=== PATIENT | female | born 1995 | race Caucasian/White ===

== ENCOUNTER → 2019-05-06 08:19 | Outpatient (CLI) | payer BC, SELFPAY ==
--- NOTE | ~2019-05-06 | US_ITS ---
EXAMINATION: US OB >= 14 weeks Fetus DATE: 05/06/2019 08:50 INDICATION: Second trimester anatomic survey TECHNIQUE: Real-time ultrasound of the pelvis was performed. COMPARISON: 02/25/2019. FINDINGS: There is a single living fetus in vertex presentation. The placenta is anterior and 1.1 cm from the i nternal cervical os. heart rate is 156 beats per minute (bpm). cardiac activity and feta l movement are noted. The amniotic fluid index is subjectively normal. The following anatomy was identified as normal: 4 chamber heart 3 vessel cord cord insertion kidneys urinary bladder stomach spine diaphragm ventricles cisterna magna cerebellum The following biometric data were obtained: Biparietal diameter (BPD): 4.3 cm; head circumference (HC): 15.6 cm; abdominal circumference (AC): 13 .6 cm; femur length (FL): 2.8 cm. These measurements are concordant. Estimated weight is 261 g +/- 39 g, which correlates with the 73rd percentile when 10/04/19 is u sed as estimated date of delivery. As single measurements, these parameters are each equal to the following estimated gestational ages w ith ranges of +/- 2 standard deviations: BPD: 19 weeks 0 days ( 17 weeks 2 days - 20 weeks 6 days). HC: 18 weeks 4 days ( 17 weeks 1 days - 20 weeks 0 days). AC: 19 weeks 1 days ( 17 weeks 0 days - 21 weeks 1 days). FL: 18 weeks 5 days ( 16 weeks 6 days - 20 weeks 3 days). estimated gestational age based solely on measurements from this exam is 18 weeks 6 days +/- 1 weeks 2 days. IMPRESSION: 1. Single living fetus in vertex presentation. 2. Estimated weight is 261 g +/- 39 g, which correlates with the 73rd percentile when 10/04/19 i s used as estimated date of delivery. 3. Low-lying placenta. Reviewed, dictated and finalized at location A. IMPRESSION: 1. Single living fetus in vertex presentation. 2. Estimated weight is 261 g +/- 39 g, which correlates with the 73rd per centile when 10/04/19 is used as estimated date of delivery. 3. Low-lying placenta.
== END ==
PROVIDERS: Visit Provider Obstetrics & Gynecology Gynecology
DX: Z36.9 Encounter for antenatal screening, unspecified (principal); Z3A.18 18 weeks gestation of pregnancy
CPT/HCPCS: 76805

== ENCOUNTER → 2019-06-02 11:13 | Outpatient (CLI) | payer BC, SELFPAY ==
--- NOTE | ~2019-06-02 | US_ITS ---
EXAMINATION: US OB limited DATE: 06/02/2019 11:29 INDICATION: Low-lying placenta, second trimester TECHNIQUE: Real-time ultrasound of the pelvis was performed. The interpreting radiologist was not pre sent for the study. COMPARISON: 05/06/2019 FINDINGS: There is a single living fetus in vertex presentation. The placenta is anterior and 1.3 cm from the internal cervical os.. cardiac activity and movement are noted. heart rate is 152 beats per minute (bpm). The amniotic fluid index is subjectively normal. IMPRESSION: 1. Single living fetus in vertex presentation. 2. Persistent low-lying placenta. Reviewed, dictated and finalized at location B.
== END ==
PROVIDERS: PCP Physician Assistant Medical; Visit Provider Obstetrics & Gynecology Gynecology
DX: O44.10 Complete placenta previa with hemorrhage, unspecified trimester (principal); Z3A.00 Weeks of gestation of pregnancy not specified
CPT/HCPCS: 76815

== ENCOUNTER 2019-06-29 09:54 | Outpatient (CLI) | payer BC, SELFPAY ==
--- NOTE | ~2019-06-29 | US_ITS ---
EXAMINATION: US OB limited, US OB transvaginal DATE: 06/29/2019 11:06 INDICATION: Low lying placenta TECHNIQUE: Real-time ultrasound of the pelvis was performed utilizing both transabdominal and transva ginal probes. The interpreting radiologist was not present for the study. COMPARISON: None. FINDINGS: There is a single living fetus in vertex presentation. The placenta is anterior and low lying with c audal margin 2.1 cm from the internal cervical os. heart rate is 132 beats per minute (bpm). IMPRESSION: 1. Single living fetus in vertex presentation with heart rate of 132 bpm. 2. Anterior placenta is borderline but not low-lying with caudal margin 2.1 cm from the internal cerv ical os. Reviewed, dictated and finalized at location A. IMPRESSION: 1. Single living fetus in vertex presentation with heart rate of 132 bpm . 2. Anterior placenta is borderline but not low-lying with caudal margin 2.1 cm from the internal cervical os.
[2019-06-29 12:30] LABS: Hematocrit 35.6 % (37.0-47.0)
[2019-06-29 12:49] LABS: Glucose 1 Hour PP 50gm Dose 108 mg/dL
[2019-06-29 13:15] LABS: Vitamin D 25 Hydroxy 58.2 ng/mL
[2019-06-29 13:29] LABS: HIV 1/2 Ab P24 Ag Result Negative (Negative)
[2019-06-30] MEDS: RHO(D) IMMUNE GLOBULIN 300 MCG SYRINGE IM (16:13)
== END 2019-06-29 09:55 | disposition home or self-care (01) ==
LOC: ANHIMG 10:04
PROVIDERS: PCP Physician Assistant Medical; Visit Provider Obstetrics & Gynecology Gynecology
DX: Z34.03 Encounter for supervision of normal first pregnancy, third trimester (principal)
CPT/HCPCS: 36415; 76815; 76817; 81220; 82306; 82947; 85014; 85018; 85461; 86703; 90384; 96372; G0432; J2790

== ENCOUNTER 2019-07-28 10:59 | Outpatient (CLI) | payer BC, SELFPAY ==
--- NOTE | ~2019-07-28 | US_ITS ---
EXAMINATION: US OB limited DATE: 07/28/2019 12:09 INDICATION: Low-lying placenta during third trimester . TECHNIQUE: Real-time ultrasound of the pelvis was performed. The interpreting radiologist was not pre sent for the study. COMPARISON: 07/09/2019 FINDINGS: There is a single living fetus in vertex presentation. The placenta is anterior with caudal margin 3 .3 cm from the internal cervical os. heart rate is 143 beats per minute (bpm). The amniotic flu id volume is subjectively normal. IMPRESSION: 1. Single living fetus in vertex presentation with heart rate of 143 bpm. 2. Anterior placenta with caudal margin 3.3 cm from the internal cervical os. Reviewed, dictated and finalized at location A. IMPRESSION: 1. Single living fetus in vertex presentation with heart rate of 143 bpm . 2. Anterior placenta with caudal margin 3.3 cm from the internal cervical os.
== END 2019-07-28 11:00 | disposition home or self-care (01) ==
PROVIDERS: PCP Physician Assistant Medical; Visit Provider Obstetrics & Gynecology Gynecology
DX: O44.40 Low lying placenta NOS or without hemorrhage, unspecified trimester (principal)
CPT/HCPCS: 76815

== ENCOUNTER → 2019-09-19 13:44 | Outpatient (CLI) | payer BC, SELFPAY ==
--- NOTE | ~2019-09-19 | US_ITS ---
EXAMINATION: US OB follow up DATE: 09/19/2019 14:04 INDICATION: Gestational size less than gestational dates TECHNIQUE: Real-time transabdominal obstetric ultrasound. FINDINGS: Comparison to multiple prior studies sequentially, with oldest reviewed study dated 020. There is a single living fetus in vertex presentation. The placenta is anterior without placenta pre via. cardiac activity and movement is noted with a heart rate of 149 beats per minute. T he amniotic fluid volume is normal. DG measures 10.2 cm. The following biometric data were obtained: BPD: 86mm corresponds to gestational age 34 weeks 6 days. Head circumference: 312mm corresponds to gestational age 34 weeks 6 days. Abdominal circumference: 309mm corresponds to gestational age 34 weeks 6 days. Femur length: 66mm corresponds to gestational age 34 weeks 0 days. Estimated weight: 2464grams +/- 370grams. Estimated weight is 3.4 percentile. IMPRESSION: 1. Single living intrauterine in vertex presentation with an estimated gestational age of 37 weeks 6 days by inititial ultrasound. Current measurements correspond to a 34 week 5 day gestation , consistent with delayed growth. Estimated weight is in the 3.4 percentile. 2. Normal placenta. Reviewed, dictated and finalized at location A. IMPRESSION: 1. Single living intrauterine in vertex presentation with an estimat ed gestational age of 37 weeks 6 days by inititial ultrasound. Current measurem ents correspond to a 34 week 5 day gestation, consistent with delayed growth. E stimated weight is in the 3.4 percentile. 2. Normal placenta.
== END ==
PROVIDERS: Visit Provider Nurse Practitioner
DX: Z36.89 Encounter for other specified antenatal screening (principal); Z3A.37 37 weeks gestation of pregnancy
CPT/HCPCS: 76816

== ENCOUNTER 2019-09-21 06:00 | Inpatient (IN) | payer BC, SELFPAY ==
[2019-09-21] VITALS (112 sets, daily range): BP systolic 92–137; BP diastolic 58–101; PULSE 78–206; RESP 14–16; TEMP 36.6–38.8; O2SAT 97–100; BMI 27.0
--- NOTE | 2019-09-21 06:36 | LDADM ---
This patient, Kamryn Powell, was admitted to Labor/Delivery/Recovery 103 on 09/21/19 at 06:00. Plans for labor, pain management and were discussed with patient. Patient/family oriented to hospital policies and general routines including ID bracelet, bed and alarms, visiting hours, pain management, procedures, bathroom and other care routines, personal items, smoking policy, room service/diet and guest tray routines, infant security routines, call light, and visiting hours. Patient/Family are encouraged to report perceived risks to care and to ask questions if they do not understand what they are told or what they should do. See OBIX for further documentation.
[2019-09-21 07:21] LABS: Basophils Percent Auto 0.3 % (0.2-1.2); Eosinophils Absolute Auto 0.2 K/mm3 (0-0.3); Eosinophils Percent Auto 1.8 % (0-4.4); Hematocrit 30.7 % (37.0-47.0); Hemoglobin 10.1 g/dL (12.0-15.0); Immature Granulocyte Absolute 0.06 K/mm3 (0.00-0.031); Immature Granulocyte Percent A 0.7 % (0-0.5); Lymphocytes Percent Auto 20.3 % (18.3-44.2); Mean Corpuscular HGB Conc 32.9 g/dl (32-36); Mean Corpuscular Hemoglobin 30.2 pg (26-34); Mean Corpuscular Volume 91.9 fl (80-100); Mean Platelet Volume 11.1 fl (7.4-10.4); Monocytes Percent Auto 11.5 % (2.6-8.5); Neutrophils Absolute Auto 5.8 K/mm3 (1.3-6.7); Neutrophils Percent Auto 65.4 % (45.5-73.1); Platelet Count Result 175 k/mm3 (150-375); Red Blood Count 3.34 M/mm3 (4.2-5.4); Red Cell Distribution Width 14.1 % (11.5-14.5); White Blood Count 8.9 K/mm3 (4.5-10.0)
[2019-09-21] MEDS: LACTATED RINGERS 1,000 ML 125 ML IV CONT ×2 (07:23→13:50)
[2019-09-21] MEDS: OXYTOCIN 30 UNITS/NS 500 ML 30 UNITS/500 ML BAG 6 UNITS IV CONT (07:24)
--- NOTE | 2019-09-21 07:36 | WPDOBADMIT ---
Obstetrics - Admit Note Admission Note: record reviewed. No pertinent additions to the history and/or any subsequent changes in the physical findings that are not consistent with the expected course of the were found. Additions to the history and/or subsequent changes in the physical findings follow. Here for MIL. Cervix 150/-2 AROM with clear fluid. FHTs reactive
--- NOTE | 2019-09-21 14:03 | WPDANESEPPF ---
Anes - Initial Pre Proc Eval Procedure: Labor Epidural Date/Time: 09/21/19 14:03 Surgeon: Marissa Cross MD Pre Op Diagnosis: Induction of Labor Patient Data Age: 23 Gender: F Height: 1.65 m Weight: 73.6 kg Last Vital Signs Temp 37.0 C 09/21/19 08:30 Pulse 100 09/21/19 14:00 BP 119/89 09/21/19 14:00 Pulse Ox 100 09/21/19 14:00 Allergies Allergy/AdvReac Type Severity Reaction Status Date / Time clavulanic acid Allergy Mild Verified 06/06/08 15:36 Penicillins Allergy Mild Verified 06/06/08 15:36 BETALACTAMASEIN Allergy Mild Uncoded 06/06/08 15:36 Home Medications Medication Instructions Recorded Confirmed Type PNV cmb#95-ferrous fumarate-FA 1 tablet PO DAILY 09/01/19 09/21/19 History [] ergocalciferol (vitamin D2) 1,250 mcg PO WEEKLY 09/01/19 09/21/19 History [Vitamin D2] valacyclovir [Valtrex] 500 mg PO DAILY 09/01/19 09/21/19 History Laboratory Tests 09/21/19 09/21/19 09/21/19 07:05 07:05 07:05 WBC 8.9 K/mm3 K/mm3 (4.5-10.0) RBC 3.34 M/mm3 L M/mm3 (4.2-5.4) Hgb 10.1 g/dL L g/dL (12.0-15.0) Hct 30.7 % L % (37.0-47.0) MCV 91.9 fl fl (80-100) MCH 30.2 pg pg (26-34) MCHC 32.9 g/dl g/dl (32-36) RDW 14.1 % % (11.5-14.5) Plt Count 175 k/mm3 k/mm3 (150-375) MPV 11.1 fl H fl (7.4-10.4) Immature Gran % (Auto) 0.7 % H % (0-0.5) Neut % (Auto) 65.4 % % (45.5-73.1) Lymph % (Auto) 20.3 % % (18.3-44.2) Sac % (Auto) 11.5 % H % (2.6-8.5) Eos % (Auto) 1.8 % % (0-4.4) Baso % (Auto) 0.3 % % (0.2-1.2) Lymph # (Auto) 1.80 K/mm3 K/mm3 (0.9-3.2) Sac # (Auto) 1.0 K/mm3 H K/mm3 (0.1-0.6) Eos # (Auto) 0.2 K/mm3 K/mm3 (0-0.3) Baso # (Auto) 0.0 K/mm3 K/mm3 (0.0-0.1) Abs Immat Gran (auto) 0.06 K/mm3 H K/mm3 (0.00-0.031) Absolute Neuts (auto) 5.8 K/mm3 K/mm3 (1.3-6.7) Absolute Nucleated RBC 0.0 K/mm3 K/mm3 (0.0-0.012) Nucleated RBC % 0.0 % % (0.0-0.2) RPR Pending Blood Type O Negative Antibody Screen Negative Patient hx anesthesia problems: none Family hx anesthesia problems: none PMFSH Family History Family History Other No family history of diabetes mellitus Social History Social History Smoking status: Never smoker Second hand tobacco smoke exposure: No Alcohol intake: never Substance use: never Gender identity (if verbalized by the patient): Female Spiritual care concerns: No Anes - Eval Final PreProcedure Day of Procedure 09/21/19 14:03 Patient weight: normal Heart: regular rate and rhythm Lungs: normal air movement Airway: Mallampati scale class 1 Neurological: alert and oriented ASA classification: II Emergent: no Anesthetic plan: proceed Anesthesia type and monitoring: regional epidural Informed Consent: The patient's anesthetic plan and its attendant risks and benefits were discussed with the patient/family/POA. Questions were solicited and answers provided to the satisfaction of the patient/family/POA.
--- NOTE | 2019-09-21 19:23 | PM.OBPRVD ---
OB - Delivery Note Procedure Delivery date: 09/21/19 events: Labor Induction (IUGR by u/s) and Oligohydramnios Intrapartal events: None Induction method: AROM and per pitocin protocol Delivery monitor: external FHT and internal uterine Route of delivery: Laceration description: Perineal - 2nd Degree Delivery repair: vicryl (3-0) Specimen: Yes (placenta) Estimated blood loss (mL): 100 Anesthesia type: Epidural Disposition: floor [place] [facility] Weeks of gestation at delivery: 38 gender: Female Weight (pounds): 6 Weight (ounces): 3 presentation: vertex Placenta delivery description: Spontaneous cord vessel description: 3 Vessels and Nuchal Cord score one minute: 9 score five minutes: 9
--- NOTE | 2019-09-21 19:24 | PM.OBDSVD ---
DS: Admitting Diagnosis Admitting Diagnosis Admitting Diagnosis: IUP 38 4/7 wks; IUGR; Oligohydramnios OB - DS: Summary OB Procedures : NST and Ultrasound OB Procedures Intrapartum: Spontaneous Vag Delivery OB Procedures: : None Peripartum Data Infant Delivery Method: Natural Vaginal Laceration description: Perineal - 2nd Degree complications: none Status at Discharge Functional status at discharge: independent ambulation Overall status at discharge: patient is progressing back to baseline Time Spent with Patient Time attestation: Total time spent providing and/or coordinating discharge services: DS: Data Data Completed and Pending Labs on day of discharge: Labs from last 24 hours 09/21/19 09/21/19 09/21/19 07:05 07:05 07:05 WBC 8.9 RBC 3.34 L Hgb 10.1 L Hct 30.7 L MCV 91.9 MCH 30.2 MCHC 32.9 RDW 14.1 Plt Count 175 MPV 11.1 H Immature Gran % (Auto) 0.7 H Neut % (Auto) 65.4 Lymph % (Auto) 20.3 [place] % (Auto) 11.5 H Eos % (Auto) 1.8 Baso % (Auto) 0.3 Lymph # (Auto) 1.80 [place] # (Auto) 1.0 H Eos # (Auto) 0.2 Baso # (Auto) 0.0 Abs Immat Gran (auto) 0.06 H Absolute Neuts (auto) 5.8 Absolute Nucleated RBC 0.0 Nucleated RBC % 0.0 RPR Pending Blood Type O Negative Antibody Screen Negative Discharge Plan Discharge Attending physician on discharge: Marissa Cross Discharging Clinician: Marissa Cross Anticipated Discharge Date/Time: 09/23/19 19:25 Patient Disposition: Home, Self-Care Activity: may shower and pelvic rest Diet: regular Patient Instructions: Antibiotic Form Stand Alone Forms: General Discharge Information Follow-up/Referrals: Marissa Cross MD [Physician] - 6 Weeks Discharge Medications: New norethindrone (contraceptive) 0.35 mg tablet 0.35 mg PO DAILY Qty: 84 RF: 3 No Action valacyclovir [Valtrex] 500 mg Tablet 500 mg PO DAILY RF: 0 ergocalciferol (vitamin D2) [Vitamin D2] 1,250 mcg (50,000 unit) Capsule 1,250 mcg PO WEEKLY RF: 0 PNV cmb#95-ferrous fumarate-FA [] 28 mg iron- 800 mcg Tablet 1 tablet PO DAILY RF: 0 Date of admission: 09/21/19 06:00 Primary Care Provider: Caren Gao Admitting Provider: Marissa Cross Attending physician on admission: Marissa Cross Condition: Stable
[2019-09-21] MEDS: OXYTOCIN 30 UNITS/NS 500 ML 30 UNITS/500 ML BAG 125 UNITS IV CONT (19:34)
[2019-09-21] MEDS: ACETAMINOPHEN 500 MG TABLET 1000 MG PO (19:39)
[2019-09-21] MEDS: WITCH HAZEL 40 PADS 1 PAD TOPICAL (21:52)
[2019-09-21] MEDS: BENZOCAINE 20% AER SPR (*SP) 56 GM CAN 1 SPRAY TOPICAL (21:57)
[2019-09-21] MEDS: IBUPROFEN 600 MG TABLET PO (23:55)
[2019-09-22] MEDS: LANOLIN (LANSINOH) 7.5 GM CREAM 1 APPLIC TOPICAL (02:31)
[2019-09-22] MEDS: ACETAMINOPHEN 325 MG TABLET 650 MG PO ×3 (04:54→23:33)
[2019-09-22 05:29] LABS: Hematocrit 29.1 % (37.0-47.0); Hemoglobin 9.6 g/dL (12.0-15.0)
--- NOTE | 2019-09-22 07:45 | PM.OBPNVD ---
OB - PN: Subj Subjective Date/time seen: 09/22/19 07:45 Patient comments: no complaints and pain well controlled baby status: doing well and nursing well OB - PN: Obj Data Labs CBC & Chem 7: 09/22/19 05:06 Labs: Laboratory Results - last 24 hr 09/21/19 09/22/19 07:05 05:06 Hgb 9.6 L Hct 29.1 L Blood Type O Negative Antibody Screen Negative OB - PN A/P Plan day: 1 Plan: routine care Time Spent With Patient Time: Total time spent is greater than 50% in coordination of care (as documented) at patient's floor/unit and/or counseling patient: Exam Narrative: Exam Narrative: Tmax post delivery 101.8 now 98.4 : Bimanual exam- vagina & uterus: other (Uterus firm, nt @U)
[2019-09-22 08:00] VITALS: BP 114/73; PULSE 86; RESP 18; TEMP 37.2
--- NOTE | 2019-09-22 08:20 | PC.NURSE ---
Mother called out for assist with feeding, reporting is sleepy and is unable to wake for feeding. Mother states she has pain with feeding. Reviewed feeding cues, frequencies, duration of feedings, feeding elimination flow sheet, and signs of adequate intake. Demonstrated stimulation techniques to wake for feeding. easily awoken with feeding cues noted. Assisted with to breast. Reviewed positioning/alignment in cross cradle, holding breast in U hold and guided asymmetrical latch on. Discussed rational for each. Several attempts before infant was able to latch correctly. Infant appears to have a tight frenulum. Discussed how this may impact latch and emptying the breast. Suggested to allow to suck gloved finger or pacifier to assist with tongue before attempting to latch. Infant nursed eagerly, with steady draws and frequent swallowing noted. Reviewed signs of a correct latch, effective nursing and suck swallow ratio. was able to maintain latch without discomfort to mother. Nipple care reviewed. Demonstrated how to adjust latch more deeply while feeding. Suggested mother stimulate while feeding to keep infant awake and nursing effectively for increased intake and to assist with maintaining deep latch. Instructed mother to call out for RN assistance if she is unable to latch infant for feeding or she has discomfort with nursing. Instructed feeding should be initiated three hours from start of last feeding or if feeding cues are noted before. Mother voiced understanding of information shared.
[2019-09-22] MEDS: POLYSACCHARIDE IRON COMPLEX 150 MG CAPSULE PO ×2 (08:38→15:51)
[2019-09-22] MEDS: MULTIVIT/MIN/PREN/FOL AC/IRON TABLET 1 TAB PO (08:38)
[2019-09-22] MEDS: DOCUSATE SODIUM 100 MG CAPSULE PO ×2 (08:38→15:51)
[2019-09-22] MEDS: IBUPROFEN 600 MG TABLET PO ×3 (08:38→20:44)
[2019-09-22 09:01] LABS: Rapid Plasma Reagin Non-Reactive (NonReactive)
--- NOTE | 2019-09-22 12:50 | PC.NURSE ---
Mother called out for assist with feeding, reporting is sleepy and is unable to wake for feeding. Demonstrated stimulation techniques to wake infant for feeding. easily awoken with feeding cues noted. Assisted with infant to breast. Reviewed positioning/alignment in cross cradle, holding breast in U hold and guided asymmetrical latch on. Discussed rational for each. Several attempts before was able to latch correctly. Once latched, infant nursed eagerly, with steady draws and frequent swallowing noted. Reviewed signs of a correct latch, effective nursing and suck swallow ratio. was able to maintain latch without discomfort to mother. Mother reports slight tenderness with this feeding. Nipple care reviewed. Demonstrated how to adjust latch more deeply while feeding. Suggested mother stimulate while feeding to keep awake and nursing effectively for increased intake and to assist with maintaining deep latch. Instructed mother to call out for RN assistance if she is unable to latch infant for feeding or she has discomfort with nursing. Instructed feeding should be initiated three hours from start of last feeding or if feeding cues are noted before. Mother voiced understanding of information shared.
[2019-09-22] MEDS: WITCH HAZEL 40 PADS 1 PAD TOPICAL (20:44)
[2019-09-22] MEDS: BENZOCAINE 20% AER SPR (*SP) 56 GM CAN 1 SPRAY TOPICAL (20:44)
[2019-09-23 07:20] VITALS: BP 107/74; PULSE 92; RESP 18; TEMP 37.1
--- NOTE | 2019-09-23 07:20 | PM.OBPNVD ---
OB - PN: Subj Subjective Date/time seen: 09/23/19 07:20 Patient comments: no complaints and pain well controlled baby status: doing well and nursing well OB - PN: Obj Data Labs CBC & Chem 7: 09/22/19 05:06 Labs: Laboratory Results - last 24 hr 09/21/19 07:05 RPR Non-reactive OB - PN A/P Plan day: 2 Plan: routine care, discharge home, follow up 6 weeks and other (Plans micronor) Time Spent With Patient Time: Total time spent is greater than 50% in coordination of care (as documented) at patient's floor/unit and/or counseling patient: Exam : Bimanual exam- vagina & uterus: other (Uterus firm, nt @U)
[2019-09-23] MEDS: MULTIVIT/MIN/PREN/FOL AC/IRON TABLET 1 TAB PO (08:23)
[2019-09-23] MEDS: DOCUSATE SODIUM 100 MG CAPSULE PO (08:23)
[2019-09-23] MEDS: POLYSACCHARIDE IRON COMPLEX 150 MG CAPSULE PO (08:23)
[2019-09-23] MEDS: ACETAMINOPHEN 325 MG TABLET 650 MG PO (08:23)
[2019-09-23] MEDS: IBUPROFEN 600 MG TABLET PO (08:24)
[2019-09-25 08:55] VITALS: BP 119/83; PULSE 83; RESP 16; TEMP 36.9; O2SAT 99
== END 2019-09-23 10:40 | disposition home or self-care (01) | DRG 806 ==
LOC: ANHLDR 19:26 → ANHOB2 09-22 02:54
PROVIDERS: Admitting Provider Obstetrics & Gynecology Gynecology; PCP Physician Assistant Medical; Visit Provider Obstetrics & Gynecology Gynecology
DX: O36.5930 Maternal care for other known or suspected poor fetal growth, third trimester, not applicable or unspecified (principal); O41.03X0 Oligohydramnios, third trimester, not applicable or unspecified; Z37.0 Single live birth; O70.1 Second degree perineal laceration during delivery; O69.81X0 Labor and delivery complicated by cord around neck, without compression, not applicable or unspecified; Z3A.38 38 weeks gestation of pregnancy
CPT/HCPCS: 36415; 85014; 85018; 85025; 86592; 86850; 86900; 86901; 88307; A9270; J2590; J2795; J3010; J7120

== ENCOUNTER 2020-04-09 04:35 | Emergency (ER) | payer BC, SELFPAY ==
--- NOTE | 2020-04-09 04:40 | ED.BACK ---
HPI - Back Pain/Injury General Chief Complaint: Back Pain/Injury Stated Complaint: lower back, leg pain Time Seen by Provider: 04/09/20 04:39 History of Present Illness HPI Narrative: 24 yo female presents to the ED for back pain. She first started having pain in the right leg several days ago. She went to urgent care and was prescribed ibuprofen and flexeril. The pain has since moved into her left low back/buttock and radiates down the lateral part of the leg. Its worst while lying down and improves with standing. She does have intermittent numbness in the foot. No saddle anesthesia. No /GI symptoms. Related Data Home Medications Medication Instructions Recorded Confirmed cyclobenzaprine mg 04/09/20 04/09/20 desogestrel-ethinyl estradiol tablet 04/09/20 [Apri] ibuprofen 04/09/20 Allergies Allergy/AdvReac Type Severity Reaction Status Date / Time clavulanic acid Allergy Mild Rash Verified 04/09/20 04:57 Penicillins Allergy Mild Rash Verified 04/09/20 04:57 BETALACTAMASEIN Allergy Mild Unknown Uncoded 04/09/20 04:57 Review of Systems Review of Systems: All systems reviewed & are unremarkable except as noted in HPI and below Constitutional: Constitutional: Denies fever(s) and Denies weakness Eyes: Eyes: Reports no additional eye complaints Cardiovascular: Cardiovascular: Denies chest pain Respiratory: Respiratory: Denies dyspnea Gastrointestinal: Gastrointestinal: Denies abdominal pain Genitourinary: Genitourinary: Denies hematuria, Denies nocturia, Denies dysuria and Denies urinary incontinence Musculoskeletal: Musculoskeletal: Reports back pain Neurologic: Denies dizziness, Reports numbness and Denies weakness [facility] Past Medical History Medical History Family History Family History Other No family history of diabetes mellitus Social History Social History Smoking status: Never smoker Second hand tobacco smoke exposure: No Alcohol intake: never Substance use: never Gender identity (if verbalized by the patient): Female Spiritual care concerns: No Exam Const: General: healthy appearing, no acute distress and alert Orientation/consciousness: patient oriented x3 HENMT: Head: normal to inspection Neck: Neck: normal visual inspection Resp: Effort & Inspection: normal respiratory effort Auscultation: clear to auscultation bilaterally, no rales, no rhonchi and no wheezes Cardio: Jugular venous distension: no JVD Rate: regular rate Rhythm: regular rhythm Heart sounds: no murmurs Back/Spine/Pelvis: Thoracic/Lumbar Spine: straight leg raise positive (left) Pelvis: buttock tenderness on the left Skin: General skin exam: normal color Neuro: General: patient oriented x3 and moves all extremities Speech: normal speech Extrem: General: no edema Psych: Appearance: well kempt Affect: normal affect Course Vital Signs Vital signs: Vital Signs Temperature 37.1 C 04/09/20 04:50 Pulse Rate 111 H 04/09/20 04:50 Respiratory Rate 18 04/09/20 04:50 Blood Pressure 120/79 04/09/20 04:50 Pulse Oximetry 99 04/09/20 04:50 Temperature 37.1 C 04/09/20 04:50 Pulse Rate 111 H 04/09/20 04:50 Respiratory Rate 18 04/09/20 04:50 Blood Pressure 120/79 04/09/20 04:50 Pulse Oximetry 99 04/09/20 04:50 Discharge Plan Discharge Clinical Impression: Sciatica Qualifiers: Laterality: left Qualified Code(s): M54.32 - Sciatica, left side Patient Disposition: Home, Self-Care Condition: Stable Instructions: Sciatica (ED) Prescriptions: New methylprednisolone [Medrol (Delfino)] 4 mg tablets,dose pack See Rx Instructions .ROUTE .COMPLEX Qty: 21 RF: 0 diazepam [Valium] 5 mg tablet 5 mg PO HS PRN (Reason: muscle spasm) Qty: 5 RF: 0 No Action cyclobenzapri
[2020-04-09 04:50] VITALS: BP 120/79; PULSE 111; RESP 18; TEMP 37.1; O2SAT 99
[2020-04-09] MEDS: diazePAM INJ (*CRX) 10 MG/2 ML SYRINGE 5 MG IM (05:15)
[2020-04-09] MEDS: KETOROLAC (*BKC) 60 MG/2 ML VIAL IM (05:16)
[2020-04-09] MEDS: DEXAMETHASONE 2 MG TABLET 10 MG PO (05:20)
== END 2020-04-09 05:58 | disposition home or self-care (01) ==
PROVIDERS: Emergency Provider Emergency Medicine; PCP Physician Assistant Medical
DX: M54.42 Lumbago with sciatica, left side (principal)
CPT/HCPCS: 96372; 99284; J1885; J3360; J8540

== ENCOUNTER → 2020-04-10 09:47 | Outpatient (CLI) | payer BC, SELFPAY ==
--- NOTE | ~2020-04-10 | XR_ITS ---
EXAMINATION: XR lumbar spine 2-3V DATE: 04/10/2020 10:08 INDICATION: Low back pain TECHNIQUE: Anteroposterior and lateral views of the lumbar spine, and cone-down lateral view of the l umbosacral junction were obtained. COMPARISON: None. FINDINGS: There are 2 mm of retrolisthesis of L5 on S1. The vertebral body heights are maintained. Th ere is no fracture. A moderate volume of colonic stool is noted. The intervertebral disc space height s are normal. IMPRESSION: 1. Mild lumbar spondylosis at L5-S1. Reviewed, dictated and finalized at location A. P CLIP[facility]
== END ==
PROVIDERS: PCP Family Medicine; Visit Provider Nurse Practitioner Family
DX: M47.816 Spondylosis without myelopathy or radiculopathy, lumbar region (principal)
CPT/HCPCS: 72100

== ENCOUNTER 2021-03-03 15:39 | Emergency (ER) | payer BC, SELFPAY ==
[2021-03-03 15:59] VITALS: BP 125/80; PULSE 94; RESP 12; TEMP 37.4; O2SAT 100
--- NOTE | 2021-03-03 16:36 | ED.GENADULT ---
HPI - General Adult General Chief complaint: Upper Respiratory Infection Stated complaint: Bilateral Ear Pain,Sore Throat Source: patient Mode of arrival: ambulatory Limitations: no limitations History of Present Illness HPI narrative: 25 y/o female. PMHx None reported. Presents to [facility] clinic today with acute complaints of sore throat symptoms since 11 o'clock this AM. Pt reports to have woke up this AM and felt bilateral ear pressure, which has since improved. However, notes her throat to still be mildly irritated. No fevers. No nuchal rigidity. Denies dysphagia, involuntary drooling. No cough, congestion. No chest pain, dyspnea. She has not yet taken any otc remedies for her s/s. She denies known ill contacts. She is without additional acute c/o illness upon PE. Related Data Home Medications Medication Instructions Recorded Confirmed valacyclovir 500 mg PO DAILY 03/03/21 03/03/21 Allergies Allergy/AdvReac Type Severity Reaction Status Date / Time clavulanic acid Allergy Mild Rash Verified 03/03/21 16:18 Penicillins Allergy Mild Rash Verified 03/03/21 16:18 BETALACTAMASEIN Allergy Mild Unknown Uncoded 03/03/21 16:18 Review of Systems Review of Systems: CONSTITUTIONAL: Denies fever, chills, sweats. EYES: Denies visual changes, redness, discharge. ENT: Denies rhinorrhea, congestion, otalgia. No sore throat. CARDIOVASCULAR: Denies chest pain, palpitations, edema. RESPIRATORY: Denies dyspnea, wheezing, cough GASTROINTESTINAL: Denies abdominal pain, nausea, vomiting, diarrhea. GENITOURINARY: Denies dysuria, hematuria, abnormal discharge SKIN: Denies rash or itching. MUSCULOSKELETAL: Denies acute back pain, joint pain, or myalgia. NEUROLOGIC: Denies numbness, or focal weakness. PSYCHIATRIC: Denies anxiety or depression. All systems reviewed & are unremarkable except as noted in HPI and below PMFSH Past Medical History Medical History BMI 20.0-20.9, adult Encounter for gynecological examination (general) (routine) without abnormal findings (08/03/16) Primary dysmenorrhea Routine physical examination Viral gastroenteritis Family History Family History Father No problems noted. Mother No problems noted. Sibling No problems noted. Other No family history of diabetes mellitus Social History Social History Smoking status: Never smoker Second hand tobacco smoke exposure: No Alcohol intake: current Substance use: never Additional occupation/education comments: [employer] Gender identity (if verbalized by the patient): Female Spiritual care concerns: No Exam Narrative: GENERAL: This is a well-nourished, well-developed adult, in no apparent distress. HEAD: normocephalic, atraumatic. EYES: PERRL. Sclera clear/white. EARS: External ears normal, auditory canals clear and without drainage, TMs normal. NOSE: External nose normal. No Rhinorrhea, no obstruction, nares patent. THROAT: Mucous membranes moist, posterior pharynx clear. No exudates. NECK: Neck supple, non-tender without lymphadenopathy, masses or thyromegaly. CARDIOVASCULAR: Regular rate and rhythm without murmurs, gallops, or rubs. RESPIRATORY: Clear to auscultation. Breath sounds equal bilaterally. No wheezes, rales, or rhonchi. GASTROINTESTINAL: Abdomen soft, non-tender, nondistended. Bowel sounds are active. No guarding. SKIN: warm, intact with no suspicious lesions or rash, good texture and turgor. NEURO: Alert, active, and age appropriate. No focal neurologic deficits. EXTREMITIES: Negative. Course Course Level of Care: Express Care Visit Vital Signs Vital signs: Vital Signs Temperature 37.4 C 03/03/21 15:59 Pulse Rate 94 03/03/21 15:59 Respiratory Rate 12 03/03/21 15:59 Blood Pressure 125/
== END 2021-03-03 16:40 | disposition home or self-care (01) ==
PROVIDERS: Emergency Provider Nurse Practitioner Adult Health; PCP Physician Assistant Medical
DX: J02.9 Acute pharyngitis, unspecified (principal)
CPT/HCPCS: 87081; 87880; 99213; G0463

== ENCOUNTER 2022-06-05 08:46 | Emergency (ER) | payer BC, SELFPAY ==
--- NOTE | 2022-06-05 08:54 | ED.URI ---
HPI - URI/Sore Throat General Stated Complaint: sorethroat Time Seen by Provider: 06/05/22 09:00 Source: patient Mode of arrival: ambulatory Limitations: no limitations History of Present Illness HPI Narrative: Patricai is a 26-year-old female patient presenting to the clinic today with complaints of sore throat, low-grade temperature, and ear pain that just began this morning. MD elicited complaint: fever, sore throat and other (Bilateral ear pain) Related Data Home Medications Medication Instructions Recorded Confirmed valacyclovir 500 mg tablet 500 mg PO DAILY 03/03/21 03/03/21 escitalopram oxalate 5 mg tablet 5 mg PO DAILY 06/05/22 06/05/22 Allergies Allergy/AdvReac Type Severity Reaction Status Date / Time clavulanic acid Allergy Mild Rash Verified 06/05/22 09:04 Penicillins Allergy Mild Rash Verified 06/05/22 09:04 BETALACTAMASEIN Allergy Mild Unknown Uncoded 06/05/22 09:04 Review of Systems Review of Systems: Pertinent positives per HPI. Patient denies any rash, headache, visual changes, dizziness, cough, shortness of breath, chest pain, palpitations, nausea, vomiting, diarrhea, constipation, abdominal pain, or any urinary issues. [facility] Past Medical History Medical History BMI 20.0-20.9, adult Encounter for gynecological examination (general) (routine) without abnormal findings (08/03/16) Primary dysmenorrhea Routine physical examination Viral gastroenteritis Family History Family History Father No problems noted. Mother No problems noted. Sibling No problems noted. Other No family history of diabetes mellitus Social History Social History Smoking status: Never smoker Second hand tobacco smoke exposure: No Alcohol intake: current Substance use: never Living arrangements: with family Occupation/Education: occupation Additional occupation/education comments: [employer] Gender identity (if verbalized by the patient): Female Spiritual care concerns: No Comments At the time of my signature, I reviewed and agree with the nursing past medical, surgical, social, and family history. There is no relevant family history pertinent to the patient complaint. Exam Narrative: General: Well-developed, well nourished, in no apparent distress Head: Normocephalic, atraumatic Eyes: Pupils equally round and reactive to light bilaterally, EOM intact, sclera and conjunctive clear, no discharge, lids normal Ears: TMs intact and clear, ear canals clear, no drainage, grossly hearing normal. Nose: Nares patent, no discharge, no inflammation, no sinus tenderness. Mouth: Oral pharynx red with bilateral tonsillar enlargement without lesions or masses, good dentition, MMM. Neck: Supple, trachea midline, enlargement of anterior cervical nodes, no thyroid masses or goiter palpable. Cardio: Regular rate and rhythm, s1 and s2 normal, no murmur appreciated. Resp: Clear to auscultation bilaterally, no rhonchi, rales, wheezing or rubs Course Course Emergency Course: Portions of this record may have been created with voice recognition software. Level of Care: Express Care Visit Vital Signs Vital signs: Vital signs reviewed MDM - URI/Sore Throat MDM Narrative Medical decision making narrative: At the time of visit patient is resting comfortably on exam table. Strep screen was obtained was positive in the clinic today. Prescription for azithromycin was sent to the pharmacy as patient has allergies to penicillins. Supportive measures were discussed with the patient she voiced understanding discharge instructions and agrees to treatment plan. Differential Diagnosis Differential diagnosis: Likely upper respiratory infection, otitis media, sinusitis, viral infection, bronchitis, influenza, pharyn
[2022-06-05 08:56] VITALS: BP 101/70; PULSE 119; RESP 18; TEMP 37.7; O2SAT 96
== END 2022-06-05 09:15 | disposition home or self-care (01) ==
PROVIDERS: Emergency Provider Nurse Practitioner Family; PCP Physician Assistant Medical
DX: J02.0 Streptococcal pharyngitis (principal)
CPT/HCPCS: 87880; 99212; G0463

== ENCOUNTER 2023-04-14 08:46 | Emergency (ER) | payer BC, SELFPAY ==
[2023-04-14 08:56] VITALS: BP 119/82; PULSE 101; RESP 16; TEMP 36.9; O2SAT 100
[2023-04-14 08:59] VITALS: BP 119/82; PULSE 101; RESP 16; TEMP 36.9; O2SAT 100
--- NOTE | 2023-04-14 09:07 | ED.GENADULT ---
HPI - General Adult General Chief complaint: Ear Stated complaint: bilateral ear pain History of Present Illness HPI narrative: 27 y/o female presented for c/o bilateral ear pain for about 3 days. Endorses decreased hearing in the right ear. Also reports hoarse voice and occasional cough, worse when lying down. Reports daughter with croup. Denies shortness of breath, wheezing, tinnitus, dizziness, nausea vomiting, fevers or chills. Took Tylenol. Related Data Home Medications Medication Instructions Recorded Confirmed escitalopram oxalate 5 mg tablet 5 mg PO DAILY 06/05/22 06/05/22 atomoxetine 40 mg capsule mg PO 04/14/23 04/14/23 Allergies Allergy/AdvReac Type Severity Reaction Status Date / Time clavulanic acid Allergy Mild Rash Verified 04/14/23 08:59 Penicillins Allergy Mild Rash Verified 04/14/23 08:59 BETALACTAMASEIN Allergy Mild Unknown Uncoded 04/14/23 08:59 Review of Systems Review of Systems: CONSTITUTIONAL: Denies body aches, fever, chills, or sweats. EYES: Denies visual changes, redness, or discharge. ENT: Denies rhinorrhea, congestion, reports otalgia. CARDIOVASCULAR: Denies chest pain, palpitations, or edema. RESPIRATORY: Denies dyspnea. GASTROINTESTINAL: Denies abdominal pain, nausea, vomiting, or diarrhea. SKIN: Denies rash, itching, or wounds. MUSCULOSKELETAL: Denies back pain, joint pain, or myalgia. NEUROLOGIC: Denies headache PMF Past Medical History Medical History BMI 20.0-20.9, adult Encounter for gynecological examination (general) (routine) without abnormal findings (08/03/16) Primary dysmenorrhea Routine physical examination Viral gastroenteritis Family History Family History Father No problems noted. Mother No problems noted. Sibling No problems noted. Other No family history of diabetes mellitus Social History Social History Smoking status: Never smoker Second hand tobacco smoke exposure: No Alcohol intake: current Substance use: never Living arrangements: with family Occupation/Education: occupation Additional occupation/education comments: hairstylist Gender identity (if verbalized by the patient): Female Spiritual care concerns: No Exam Narrative: GENERAL: well-appearing, no acute distress. EYES: conjunctivae clear ENT: Mucous membranes moist. TMs pearly fischer with normal light reflex bilaterally; no tragal tenderness. Oropharynx erythematous without lesions. Tonsils not enlarged and without exudate. No drooling, no hoarseness, no trismus, uvula midline. No tripod positioning, hot potato voice, or soft palate swelling. NECK: Supple. No lymphadenopathy CHEST: Clear to auscultation, breath sounds equal. No respiratory distress, speaks in full sentences. HEART: Regular rate and rhythm. No murmur heard. SKIN: Warm, dry, no rash. NEURO: Alert and oriented x3. Course Course Emergency Course: Patient is aware of diagnosis, understands and agrees to treatment plan. Anticipatory guidance given. Patient agrees to follow-up as directed and is aware of reasons to seek care at the emergency department. Portions of this record may have been created with voice recognition software Level of Care: Express Care Visit Vital Signs Vital signs: Vital Signs Temperature 98.5 F 04/14/23 08:56 Pulse Rate 101 H 04/14/23 08:56 Respiratory Rate 16 04/14/23 08:56 Blood Pressure 119/82 04/14/23 08:56 Pulse Oximetry 100 04/14/23 08:56 Oxygen Delivery Room Air 04/14/23 08:56 Temperature 98.5 F 04/14/23 08:59 Pulse Rate 101 H 04/14/23 08:59 Respiratory Rate 16 04/14/23 08:59 Blood Pressure 119/82 04/14/23 08:59 Pulse Oximetry 100 04/14/23 08:59 Oxygen Delivery Room Air 04/14/23 08:59 Medical Decision Ld
== END 2023-04-14 09:24 | disposition home or self-care (01) ==
PROVIDERS: Emergency Provider Nurse Practitioner Family; PCP Physician Assistant Medical
DX: H66.003 Acute suppurative otitis media without spontaneous rupture of ear drum, bilateral (principal)
CPT/HCPCS: 87081; 87880; 99213; G0463

== ENCOUNTER 2024-04-22 09:29 | Emergency (ER) | payer BC, SELFPAY ==
--- NOTE | 2024-04-22 09:33 | ED.URI ---
HPI - URI/Sore Throat General Chief Complaint: Ear Stated Complaint: Ear/sinus Time Seen by Provider: 04/22/24 09:31 Source: patient Mode of arrival: ambulatory Limitations: no limitations History of Present Illness HPI Narrative: Patricia is a 28-year-old female patient presenting to the clinic today with complaints of right ear pain, sore throat, nasal congestion, and cough. She reports symptoms have been going on for 3 days. No known fever, chills, body aches. She is 32 weeks . MD elicited complaint: sore throat and nasal congestion Related Data Home Medications ?Medication ?Instructions ?Recorded ?Confirmed ?Last Taken ?Type escitalopram oxalate 5 mg tablet 5 mg PO DAILY 06/05/22 06/05/22 Unknown History atomoxetine 40 mg capsule mg PO 04/14/23 04/14/23 Unknown History Allergies Allergy/AdvReac Type Severity Reaction Status Date / Time clavulanic acid Allergy Mild Rash Verified 04/14/23 08:59 Penicillins Allergy Mild Rash Verified 04/14/23 08:59 BETALACTAMASEIN Allergy Mild Unknown Uncoded 04/14/23 08:59 Review of Systems Review of Systems: Pertinent positives per HPI. Patient denies any fever, chills, rash, headache, visual changes, dizziness, shortness of breath, chest pain, palpitations, nausea, vomiting, diarrhea, constipation, abdominal pain, or any urinary issues. [facility] Past Medical History Medical History BMI 20.0-20.9, adult Encounter for gynecological examination (general) (routine) without abnormal findings (08/03/16) Primary dysmenorrhea Routine physical examination Viral gastroenteritis Family History Family History Father No problems noted. Mother No problems noted. Sibling No problems noted. Other No family history of diabetes mellitus Social History Social History Smoking status: Never smoker Second hand tobacco smoke exposure: No Alcohol intake: current Substance use: never Living arrangements: with family Occupation/Education: occupation Additional occupation/education comments: [employer] Gender identity (if verbalized by the patient): Female Spiritual care concerns: No Comments At the time of my signature, I reviewed and agree with the nursing past medical, surgical, social, and family history. There is no relevant family history pertinent to the patient complaint. Exam Narrative: General: Well-developed, well nourished, in no apparent distress Head: Normocephalic, atraumatic Eyes: Pupils equally round and reactive to light bilaterally, EOM intact, sclera and conjunctive clear, no discharge, lids normal Ears: Cerumen impaction bilaterally, ear irrigation was performed, some cerumen remains, TMs intact and congested, no drainage, grossly hearing normal. Nose: Nares patent, clear discharge, no inflammation, no sinus tenderness. Mouth: Oropharynx red without lesions or masses, good dentition, MMM. Postnasal drip Neck: Supple, trachea midline, no enlargement of anterior or posterior cervical nodes, no thyroid masses or goiter palpable. Cardio: Regular rate and rhythm, s1 and s2 normal, no murmur appreciated. Resp: Clear to auscultation bilaterally anteriorly and posteriorly, no rhonchi, rales, wheezing or rubs Course Course Emergency Course: Portions of this record may have been created with voice recognition software. Level of Care: Express Care Visit Vital Signs Vital signs: Vital Signs Temperature 36.8 C 04/22/24 09:42 Pulse Rate 95 04/22/24 09:42 Respiratory Rate 16 04/22/24 09:42 Blood Pressure 117/69 04/22/24 09:42 Pulse Oximetry 99 04/22/24 09:42 Temperature 36.8 C 04/22/24 09:42 Pulse Rate 95 04/22/24 09:42 Respiratory Rate 16 04/22/24 09:42 Blood Pressure 117/69 04/22/24 09:42 Pulse Oximetry 99 04/22/24 09:42 Vital signs reviewed Procedures Ear Wax Removal Both Ears: Ear Wax Removal Date: 04/22/24 Cerumenolytic Used: other (Debrox) Results: Re-examined: some cerumen remains TM Examination: TM(s) intact, normal appearance and other (congested) Ear Canal Exam: atraumatic Patient Tolerated Procedure: well and no complications Complications: no problems Technique: ear canal irrigated and ear canal curetted Additional Comments: Verbal consent obtained for ear irrigation. Risk and benefits explained and patient voiced understanding. Ear irrigation performed using an elephant ear and spray water bottle. Mixture of 1/2 peroxide 1/2 water used to irrigate ear canal. Cerumen impaction cleared and TM visualized without redness. Grossly hearing normal. Patient tolerated procedure well MDM - URI/Sore Throat MDM Narrative Medical decision making narrative: At the time of visit patient is resting comfortably on the exam table. Patient appears to be nontoxic. Labs: COVID, influenza, and strep test was negative in the clinic today. We will send strep for culture. Procedures: Ear irrigation was performed bilaterally. Five drops debrox was instilled into each ear. Some cerumen remains. Patient tolerated well Plan: I suspect patient has URI/pharyngitis/cerumen impaction, viral syndrome. Supportive measures were discussed with the patient and they voiced understanding discharge instructions and agrees to treatment plan. Return precautions reviewed Differential Diagnosis Differential diagnosis: Likely upper respiratory infection, otitis media, sinusitis, viral infection, bronchitis, influenza, pharyngitis and other (COVID) Lab Data Labs: Lab Results 04/22/24 Range/Units 10:23 POC Influenza A Ag Negative (Negative) POC Influenza B Ag Negative (Negative) POC SARS CoV-2 Ag Negative (Negative) POC Grp A Strep Screen Negative (Negative) Discharge Plan Discharge Clinical Impression: URI (upper respiratory infection) Qualifiers: URI type: unspecified viral URI Qualified Code(s): J06.9 - Acute upper respiratory infection, unspecified Pharyngitis Qualifiers: Pharyngitis/tonsillitis etiology: unspecified etiology Qualified Code(s): J02.9 - Acute pharyngitis, unspecified Cerumen impaction Qualifiers: Laterality: bilateral Qualified Code(s): H61.23 - Impacted cerumen, bilateral Patient Disposition: Home, Self-Care Condition: Stable Instructions: Antibiotic Form, Pharyngitis (ED), Upper Respiratory Infection (ED), Earache (ED) Additional Instructions: COVID, influenza, and strep test were all negative in the clinic today. We will send strep for culture. If the strep comes back positive we will contact him place you on antibiotics at that time. Cerumen impaction irrigation was performed-some cerumen remains Increase fluids and stay well hydrated Tylenol/motrin for pain/fever Flonase and OTC antihistamines as directed Vicks vapor rub to open sinuses Sinus rinses for congestion Cepacol spray, cough drops, throat lozenges, warm tea with honey/lemon, gargle salt water to soothe throat BRAT diet for diarrhea Clear liquids x 24 hours then advance as tolerated for nausea/vomiting Go to the ED if you develop a worsening in your condition- high fever not controlled by Tylenol or Motrin, dehydration, weakness, lethargy, shortness of breath, or chest pain. Follow up with your PCP in 3-5 days if symptoms persist. Approved Medications for Patients Cold and Flu Symptoms --Tylenol (regular or extra Strength) Fever (call if over 101?)--Tylenol (regular or extra Strength) Nasal Drainage/Head Congestion--Chlor-Trimeton, Sudafed, Tavist,Tylenol Sinus Cough--Robitussin, Delsym, Mucinex Sore Throat--Chloraseptic, Cepacol lozenges Allergy Symptoms--Benadryl, Zyrtec, Zyrtec D, Claritin, Claritin D Nausea--Emetrol, Vitamin B6 Tablets, Edelmira, Edelmira Tea, Preggie Pops, B- Suckers Constipation--Milk of Magnesia, Metamucil, Fiberall, Konsyl, Colace (Docusate Sodium Diarrhea--Imodium, Kaopectate, Follow BRAT diet: bananas, rice, applesauce, tea/toast Heartburn--Maalox, Mylanta, TUMS, Prilosec OTC, Zantac, Tagament, Prevacid, Pepcid Hemorrhoids--Tucks Pads, Anusol, Preparation H, warm sitz baths Patient Language: Georgian Prescriptions: No Action escitalopram oxalate 5 mg tablet 5 mg PO DAILY atomoxetine 40 mg capsule PO amoxicillin-pot clavulanate 875-125 mg tablet 1 tablet PO Q12H 7 Days Qty: 14 0RF Follow-up/Referrals: PHYSICIAN,FINANCIAL RETIREMENT PLAN SPECIALIST [Primary Care Provider] - Time of Disposition: 11:06 Quality NIHSS Nursing Documentation ED NIHSS nursing documentation: reviewed/agree
[2024-04-22 09:42] VITALS: BP 117/69; PULSE 95; RESP 16; TEMP 36.8; O2SAT 99
[2024-04-22] MEDS: CARBAMIDE PEROXIDE 6.5% OT SOLN 15 ML BTL 5 DROP EACH EAR (10:14)
[2024-04-22 10:26] LABS: EDCOVIDSCREEN Negative (Negative); EDINFLUASCREEN Negative (Negative); EDINFLUBSCREEN Negative (Negative); EDSTREPNEGPOS1 Negative (Negative)
== END 2024-04-22 11:09 | disposition home or self-care (01) ==
PROVIDERS: Emergency Provider Nurse Practitioner Family
DX: O99.513 Diseases of the respiratory system complicating pregnancy, third trimester (principal); J06.9 Acute upper respiratory infection, unspecified; J02.9 Acute pharyngitis, unspecified; O99.891 Other specified diseases and conditions complicating pregnancy; H61.23 Impacted cerumen, bilateral; Z3A.32 32 weeks gestation of pregnancy; Z20.822 Contact with and (suspected) exposure to COVID-19
CPT/HCPCS: 69209; 87081; 87426; 87804; 87880; 99213; A9270; G0463